=== PATIENT | female | born 1985 | race Caucasian/White ===

== ENCOUNTER 2016-11-28 08:41 | Emergency (ER) | payer BC, MEDICAID ==
[2016-11-28 08:48] VITALS: BP 130/88
--- NOTE | 2016-11-28 09:44 | ED ---
- HPI Summary HPI Summary: 31F presents with vaginal bleeding for 3 days. She states is started with spotting three days ago. Yesterday [facility] and they did an u/s and said that the fetus had no HR. She had appointment in [place] for D&E when last night she felt contractions and had heavy vaginal bleeding with clots. She staets she does not know if she is still bleeding but it is now just cramp like pain. She denies any lightheadedness. She denies any n/v or dysuria or fevers. She does not know her blood type. Her previous miscarriage is at 9weeks. - History of Current Complaint Chief Complaint: EDVaginalBleeding Stated Complaint: 17WKS PREG/VAG BLEEDING Time Seen by Provider: 11/28/16 09:20 Pain Intensity: 5 PMH/Surg Hx/FS Hx/Imm Hx Endocrine/Hematology History: Denies: Hx Anticoagulant Therapy Cardiovascular History: Reports: Hx Hypertension Infectious Disease History: Denies: Traveled Outside the [place] in Last 30 Days - Family History Known Family History: Positive: Cardiac Disease - Social History Alcohol Use: None Substance Use Type: Reports: None Smoking Status (MU): Never Smoked Tobacco Review of Systems Negative: Fever Negative: Chest Pain Negative: Shortness Of Breath Positive: Abdominal Pain, Other - vaginal bleeding. Negative: Vomiting, Diarrhea, Nausea All Other Systems Reviewed And Are Negative: Yes Physical Exam - Physical Exam Triage Information Reviewed: Yes Vital Signs Reviewed: Yes Appearance: Positive: Well-Appearing Skin: Positive: Warm, Dry Head/Face: Positive: Normal Head/Face Inspection Eyes: Positive: Normal, Conjunctiva Clear ENT: Positive: Normal ENT inspection, Pharynx normal, TMs normal Respiratory/Lung Sounds: Positive: Clear to Auscultation, Breath Sounds Present Cardiovascular: Positive: Normal, RRR Abdomen Description: Positive: Nontender, Soft Bowel Sounds: Positive: Present Diagnostics - Vital Signs Vital Signs Temp Pulse Resp BP Pulse Ox 11/28/16 08:45 98 F 88 19 130/88 98 - Laboratory Result Diagrams: 11/28/16 09:44 11/28/16 09:44 Lab Statement: Any lab studies that have been ordered have been reviewed, and results considered in the medical decision making process. - Ultrasound No standard instances Ultrasound Interpretation: Positive (See Comments) - IMPRESSION: NO INTRAUTERINE IS SEEN MOST CONSISTENT WITH THE PATIENT'S HISTORY OF A SPONTANEOUS MISCARRIAGE. THE LESS LIKELY POSSIBILITY OF AN ECTOPIC CANNOT BE EXCLUDED. RECOMMEND CLINICAL CORRELATION AND FOLLOW-UP. Ultrasound Interpretation Completed By: Radiologist Course/Dx - Course Course Of Treatment: 31F presents with vaginal bleeding for 3 days. had spotting and then had u/s yesterday without HR. last night she felt contractions and had heavy vaginal bleeding with clots. She denies any n/v or fevers. Her previous miscarriage is at 9weeks. B+ is blood type. on exam abdomen nontender. u/s does not show products of conceptions and bet HCG was 1070.07 so suspect demise for a while. warned of signs of infection to return for. attempted to contact her latrine cleaner and after multiple attempts unable to contact to keep in loop. patient has appointment on Thursday told to keep. patient understands and agrees with plan. - Differential Diagnosis/HQI/PQRI: Spontaneous , Intrauterine , /Embryonic Demise - Diagnoses Provider Diagnoses: Complete Discharge - Discharge Plan Condition: Good Disposition: HOME Patient Education Materials: Miscarriage (ED) Referrals: Vj Mcgowan [employer] [Primary Care Provider] - Lurdes Mcknight MD [Medical Doctor] - Additional Instructions: You may continue to spot for next couple days Take ibuprofen for Tylenol for pain every 6 hours Do not swim until told by obgyn as can increase chance of infection Follow up with obgyn Return to ED if develop any signs of infection such as foul smelling discharge, fever, rock hard abdomen, or any new or worsening symptoms
[2016-11-28 10:07] LABS: Hematocrit 37 % (35-47); Mean Corpuscular HGB Conc 33 g/dl (31-36); Mean Corpuscular Hemoglobin 28 pg (27-31); Mean Corpuscular Volume 86 fL (80-97); Mean Platelet Volume 9 um3 (7.4-10.4); Red Blood Count 4.28 10^6/ul (4.0-5.4); Red Cell Distribution Width 13 % (10.5-15); White Blood Count 11.3 10^3/ul (3.5-10.8)
[2016-11-28] MEDS ORDERED: ALPRAZolam TAB* 0.5 MG PO ONE (10:09)
[2016-11-28] MEDS ORDERED: ALPRAZolam TAB* 0.5 MG ONE (10:12)
--- NOTE | 2016-11-28 10:36 | RAD ---
INDICATION: , possible miscarriage. COMPARISON: There are no prior studies available for comparison. TECHNIQUE: Multiple real-time transabdominal images of the pelvis were obtained. FINDINGS: No intrauterine is seen. There is no gross evidence for retained products of conception. The uterus is slightly enlarged measuring 12.1 x 7.0 x 8.5 cm. The endometrial echo measures 1.5 cm in thickness. The ovaries were not visualized. No free intraperitoneal fluid is seen. IMPRESSION: NO INTRAUTERINE IS SEEN MOST CONSISTENT WITH THE PATIENT'S HISTORY OF A SPONTANEOUS MISCARRIAGE. THE LESS LIKELY POSSIBILITY OF AN ECTOPIC CANNOT BE EXCLUDED. RECOMMEND CLINICAL CORRELATION AND FOLLOW-UP.
[2016-11-28 10:41] LABS: Albumin 3.7 g/dL (3.2-5.2); BUN/Creatinine Ratio 9.9 (8-20); Calcium 9.3 mg/dL (8.6-10.3); EGFR African American 106.1 (>60); EGFR Non-African American 82.5 (>60); Globulin 3.2 g/dL (2-4); Potassium 3.5 mmol/L (3.5-5.0); Total Bilirubin 0.4 mg/dL (0.2-1.0); Total Protein 6.9 g/dL (6.4-8.9)
== END 2016-11-28 11:45 | disposition home or self-care (01) ==
LOC: ED 08:41
DX: O03.9 Complete or unspecified spontaneous abortion without complication (principal); R10.9 Unspecified abdominal pain; N93.9 Abnormal uterine and vaginal bleeding, unspecified
CPT/HCPCS: 36415; 76815; 80053; 84702; 85025; 99282; A9270-GY

== ENCOUNTER 2017-03-07 09:57 | Emergency (ER) | payer MEDICAID, OTHER ==
[2017-03-07] MEDS ORDERED: Aspirin Low Dose CHEW TAB* 81 MG PO ONE (10:05)
[2017-03-07] MEDS ORDERED: Ketorolac INJ* 30 MG/ML 1 ML VIAL IV PUSH ONE (10:16)
[2017-03-07 10:47] LABS: Hematocrit 39 % (35-47); Mean Corpuscular HGB Conc 34 g/dl (31-36); Mean Corpuscular Hemoglobin 29 pg (27-31); Mean Corpuscular Volume 85 fL (80-97); Mean Platelet Volume 9 um3 (7.4-10.4); Red Blood Count 4.53 10^6/ul (4.0-5.4); Red Cell Distribution Width 15 % (10.5-15); White Blood Count 8.8 10^3/ul (3.5-10.8)
[2017-03-07 11:01] LABS: ALT 32 U/L (7-52); AST 25 U/L (13-39); Albumin 3.9 g/dL (3.2-5.2); Alkaline Phosphatase 64 U/L (34-104); Anion Gap 9 mmol/L (2-11); BUN/Creatinine Ratio 12.3 (8-20); Blood Urea Nitrogen 10 mg/dL (6-24); CO2 Carbon Dioxide 22 mmol/L (22-32); Calcium 9.1 mg/dL (8.6-10.3); Chloride 103 mmol/L (101-111); EGFR African American 106.1 (>60); EGFR Non-African American 82.5 (>60); Globulin 3.5 g/dL (2-4); Glucose 138 mg/dL (70-100); Potassium 3.9 mmol/L (3.5-5.0); Sodium 134 mmol/L (133-145); Total Protein 7.4 g/dL (6.4-8.9)
--- NOTE | 2017-03-07 11:41 | RAD ---
INDICATION: Chest pain COMPARISON: None TECHNIQUE: An AP portable view obtained at 1133 hours is submitted. FINDINGS: Bones/Soft Tissues: There are no acute bony findings. Cardiomediastinal: The cardiomediastinal silhouette is normal. Lungs: There are no infiltrates. There is mild bibasilar hypoventilation Pleura: There are no pleural effusions. Other: None IMPRESSION: MILD BIBASILAR HYPOVENTILATION. NO DEFINITE INFILTRATES. SUGGEST FOLLOW-UP CLINICALLY INDICATED.
[2017-03-07 11:44] LABS: TSH (Thyroid Stimulating Horm) 4.46 mcIU/mL (0.34-5.60)
[2017-03-07 13:22] VITALS: BP 142/84
--- NOTE | 2017-03-08 21:02 | ED ---
Lilia Collazo Edward, scribed for Torsten Rich MD on 03/07/17 at 1016 . HPI Chest Pain - HPI Summary HPI Summary: 31 y/o female presents to the ED c/o sudden onset CP starting last night. The pt was lying in bed when the CP started. The CP is described as a sharp pain, rated a 8/10 when it started and a 4/10 now. The pain is aggravated with deep breaths and moving her L arm. The CP is located on the L side of the chest and radiates to the back and down the L shoulder. Denies N/V. Associated sx: SOB, L arm numbness. PMHx anxiety and HTN. Pt had a miscarriage 2 and a half months ago at 5 months . - History of Current Complaint Chief Complaint: EDChestPainROMI Hx Obtained From: Patient Onset/Duration: Started Hours Ago, Still Present Initial Severity: Severe Current Severity: Moderate Pain Intensity: 4 Pain Scale Used: 0-10 Numeric Chest Pain Location: Left Lateral Chest Pain Radiates: Yes Chest Pain Radiates To:: Back, Shoulder Aggravating Factor(s): Movement - L arm, Deep Breaths Alleviating Factor(s): Nothing Associated Signs and Symptoms: Positive: Chest Pain, Numbness, Shortness of Breath. Negative: Nausea, Vomiting - Allergy/Home Medications Allergies/Adverse Reactions: Allergies Allergy/AdvReac Type Severity Reaction Status Date / Time No Known Allergies Allergy Verified 03/07/17 10:01 Home Medications: Home Medications ALPRAZolam TAB* [Xanax TAB*] 0.25 mg PO Q8H PRN 03/07/17 [History Confirmed ] Cetirizine* [ZyrTEC 10 MG TAB*] 10 mg PO DAILY 03/07/17 [History Confirmed 03/07] Labetalol TAB* [Trandate TAB*] 100 mg PO BID 03/07/17 [History Confirmed ] PMH/Surg Hx/FS Hx/Imm Hx Previously Healthy: No Endocrine/Hematology History: Denies: Hx Anticoagulant Therapy Cardiovascular History: Reports: Hx Hypertension Infectious Disease History: Yes Infectious Disease History: Reports: Hx Hepatitis Denies: Traveled Outside the [place] in Last 30 Days - Family History Known Family History: Positive: Cardiac Disease, Hypertension - Social History Alcohol Use: None Hx Substance Use: No Substance Use Type: Reports: None Hx Tobacco Use: No Smoking Status (MU): Never Smoked Tobacco Review of Systems Constitutional: Negative Eyes: Negative ENT: Negative Positive: Chest Pain Positive: Shortness Of Breath Gastrointestinal: Negative Genitourinary: Negative Musculoskeletal: Negative Skin: Negative Positive: Numbness - L arm Psychological: Normal All Other Systems Reviewed And Are Negative: Yes Physical Exam - Summary Physical Exam Summary: VITAL SIGNS: Reviewed. GENERAL: Patient is an obese female who is lying comfortable in the stretcher. Patient is not in any acute respiratory distress. HEAD AND FACE: No signs of trauma. No ecchymosis, hematomas or skull depressions. No sinus tenderness. EYES: PERRLA, EOMI x 2, No injected conjunctiva, no nystagmus. EARS: Hearing grossly intact. Ear canals and tympanic membranes are within normal limits. MOUTH: Oropharynx within normal limits. NECK: Supple, trachea is midline, no adenopathy, no JVD, no carotid bruit, no c- spine tenderness, neck with full ROM. CHEST: Symmetric, reproducible chest pain. LUNGS: Clear to auscultation bilaterally. No wheezing or crackles. CVS: Regular rate and rhythm, S1 and S2 present, no murmurs or gallops appreciated. ABDOMEN: Soft, non-tender. No signs of distention. No rebound no guarding, and no masses palpated. Bowel sounds are normal. EXTREMITIES: FROM in all major joints, no edema, no cyanosis or clubbing. NEURO: Alert and oriented x 3. No acute neurological deficits. Speech is normal and follows commands. SKIN: Dry and warm Triage Information Reviewed: Yes Vital Signs On Initial Exam: Initial Vitals Temp Pulse Resp BP Pulse Ox 97.3 F 86 16 200/112 100 03/07/17 09:58 03/07/17 09:58 03/07/17 09:58 03/07/17 09:58 03/07/17 09:58 Vital Signs Reviewed: Yes Diagnostics - Vital Signs Vital Signs Temp Pulse Resp BP Pulse Ox 03/07/17 09:58 97.3 F 86 16 200/112 100 - Laboratory Lab Results: Lab Results 03/07/17 03/07/17 03/07/17 Range/Units 10:05 10:05 10:25 WBC 8.8 (3.5-10.8) 10^3/ul RBC 4.53 (4.0-5.4) 10^6/ul Hgb 13.0 (12.0-16.0) g/dl Hct 39 (35-47) % MCV 85 (80-97) fL MCH 29 (27-31) pg MCHC 34 (31-36) g/dl RDW 15 (10.5-15) % Plt Count 197 (150-450) 10^3/ul MPV 9 (7.4-10.4) um3 Neut % (Auto) 75.4 (38-83) % Lymph % (Auto) 14.6 L (25-47) % [place] % (Auto) 5.0 (1-9) % Eos % (Auto) 4.5 (0-6) % Baso % (Auto) 0.5 (0-2) % Absolute Neuts (auto) 6.7 (1.5-7.7) 10^3/ul Absolute Lymphs (auto) 1.3 (1.0-4.8) 10^3/ul Absolute Monos (auto) 0.4 (0-0.8) 10^3/ul Absolute Eos (auto) 0.4 (0-0.6) 10^3/ul Absolute Basos (auto) 0 (0-0.2) 10^3/ul Absolute Nucleated RBC 0 10^3/ul Nucleated RBC % 0 Sodium 134 (133-145) mmol/L Potassium 3.9 (3.5-5.0) mmol/L Chloride 103 (101-111) mmol/L Carbon Dioxide 22 (22-32) mmol/L Anion Gap 9 (2-11) mmol/L BUN 10 (6-24) mg/dL Creatinine 0.81 (0.51-0.95) mg/dL Est GFR ( Amer) 106.1 (>60) Est GFR (Non-Af Amer) 82.5 (>60) BUN/Creatinine Ratio 12.3 (8-20) Glucose 138 H (70-100) mg/dL Lactic Acid 1.0 (0.5-2.0) mmol/L Calcium 9.1 (8.6-10.3) mg/dL Total Bilirubin 0.50 (0.2-1.0) mg/dL AST 25 (13-39) U/L ALT 32 (7-52) U/L Alkaline Phosphatase 64 (34-104) U/L CK-MB (CK-2) 1.9 (0.6-6.3) ng/mL Troponin I 0.00 (<0.04) ng/mL Total Protein 7.4 (6.4-8.9) g/dL Albumin 3.9 (3.2-5.2) g/dL Globulin 3.5 (2-4) g/dL Albumin/Globulin Ratio 1.1 (1-3) TSH 4.46 (0.34-5.60) mcIU/mL Beta HCG, Quant < 0.60 mIU/mL 03/07/17 Range/Units 12:25 WBC (3.5-10.8) 10^3/ul RBC (4.0-5.4) 10^6/ul Hgb (12.0-16.0) g/dl Hct (35-47) % MCV (80-97) fL MCH (27-31) pg MCHC (31-36) g/dl RDW (10.5-15) % Plt Count (150-450) 10^3/ul MPV (7.4-10.4) um3 Neut % (Auto) (38-83) % Lymph % (Auto) (25-47) % [place] % (Auto) (1-9) % Eos % (Auto) (0-6) % Baso % (Auto) (0-2) % Absolute Neuts (auto) (1.5-7.7) 10^3/ul Absolute Lymphs (auto) (1.0-4.8) 10^3/ul Absolute Monos (auto) (0-0.8) 10^3/ul Absolute Eos (auto) (0-0.6) 10^3/ul Absolute Basos (auto) (0-0.2) 10^3/ul Absolute Nucleated RBC 10^3/ul Nucleated RBC % Sodium (133-145) mmol/L Potassium (3.5-5.0) mmol/L Chloride (101-111) mmol/L Carbon Dioxide (22-32) mmol/L Anion Gap (2-11) mmol/L BUN (6-24) mg/dL Creatinine (0.51-0.95) mg/dL Est GFR ( Amer) (>60) Est GFR (Non-Af Amer) (>60) BUN/Creatinine Ratio (8-20) Glucose (70-100) mg/dL Lactic Acid (0.5-2.0) mmol/L Calcium (8.6-10.3) mg/dL Total Bilirubin (0.2-1.0) mg/dL AST (13-39) U/L ALT (7-52) U/L Alkaline Phosphatase (34-104) U/L CK-MB (CK-2) (0.6-6.3) ng/mL Troponin I 0.00 (<0.04) ng/mL Total Protein (6.4-8.9) g/dL Albumin (3.2-5.2) g/dL Globulin (2-4) g/dL Albumin/Globulin Ratio (1-3) TSH (0.34-5.60) mcIU/mL Beta HCG, Quant mIU/mL Result Diagrams: 03/07/17 10:25 03/07/17 10:05 Lab Statement: Any lab studies that have been ordered have been reviewed, and results considered in the medical decision making process. - Radiology CXR Xray Interpretation: Positive (See Comments) - MILD BIBASILAR HYPOVENTILATION. NO DEFINITE INFILTRATES. SUGGEST FOLLOW-UP CLINICALLY INDICATED. Radiology Interpretation Completed By: Radiologist - EKG 1 EKG Interpretation: 10:05 - SR @ [address] elevations. Inverted T waves in III Chest Pain Course/Dx - Course Assessment/Plan: 31 y/o female presents to the ED c/o sudden onset CP starting last night. The pt was lying in bed when the CP started. The CP is described as a sharp pain, rated a 8/10 when it started and a 4/10 now. The pain is aggravated with deep breaths and moving her L arm. The CP is located on the L side of the chest and radiates to the back and down the L shoulder. Denies N/V. Associated sx: SOB, L arm numbness. PMHx anxiety and HTN. Pt had a miscarriage 2 and a half months ago at 5 months . EKG at 10:05 - SR @ [address] elevations. Inverted T waves in III. CXR SHOWS MILD BIBASILAR HYPOVENTILATION. NO DEFINITE INFILTRATES. SUGGEST FOLLOW-UP CLINICALLY INDICATED. Test results without significant abnormalities except Glucose 138. First and second troponin both 0.00. EKG shows no ST elevations and CXR shows no acute pathology. Pt reports pain is sharp aggravated deep expirations and movment of the L arm. Pt was given Toradol for pain and sx improved. I have no suspicion for ACS. Pt also has no tachycardia and is not hypoxic, therefore I have no suspicion for PE. The pt will be d/c home with f/u with PCP. The pt is hemodynamically stable and A&Ox3. - Chest Pain Differential Diagnosis/HQI/PQRI: ACS, Angina, CHF, Chest Wall, GI Disease, Lower Respiratory Infection - Diagnoses Provider Diagnoses: Atypical chest pain Discharge - Discharge Plan Condition: Stable Disposition: HOME Patient Education Materials: Chest Pain (ED) Referrals: Vj Mcgowan, [employer] [Primary Care Provider] - 3 Days (PLEASE F/U IN 2-3 DAYS) The documentation as recorded by the Lilia funes Edward accurately reflects the service I personally performed and the decisions made by Hilario juarez Walter, MD.
--- NOTE | 2017-03-10 09:05 | PN ---
Progress Note - Progress Note Date of Service: 03/07/17 Note: MRSA and S Aureus aerobic culture bottle results both negative. No growth day 2. anaerobic culture bottle preliminary results negative. no further action required at this time.
== END 2017-03-07 13:22 | disposition home or self-care (01) ==
LOC: ED 09:57
DX: R07.89 Other chest pain (principal)
CPT/HCPCS: 36415; 71010; 80053; 82553; 83605; 84443; 84484; 84702; 85025; 87040; 87077; 87150; 87205; 93005; 96374; 99282; J1885

== ENCOUNTER 2018-06-22 08:03 | Observation (INO) | payer OTHER ==
[2018-06-22] MEDS ORDERED: Aspirin 81 mg CHEW TAB* 81 MG TAB.CHEW PO ONE (08:12)
--- NOTE | 2018-06-22 08:16 | ED ---
HPI Chest Pain - HPI Summary HPI Summary: This pt is a 33 y/o female [facility] c/o chest pain x2 days. Pt reports she has had intermittent chest pain since 2 days ago, but today it has been constant. She states her chest pain began at 05:40 today when she woke up. Her chest pain is described as heaviness and rated 7/10 in severity. Additionally notes nausea, vomiting, lightheadedness. Denies recent out of the country travel. Pt notes she thought her symptoms for the past 2 days were due to a panic attack. She reports she was in the ED for the same symptoms about 1.5 years ago. PMHx: HTN. Pt admits to occasional alcohol but denies tobacco and drug use. - History of Current Complaint Chief Complaint: EDChestPainROMI Time Seen by Provider: 06/22/18 08:11 Hx Obtained From: Patient Onset/Duration: Started Days Ago, Still Present Timing: Intermittent, Lasting Days Current Severity: Moderate Pain Intensity: 7 Pain Scale Used: 0-10 Numeric Chest Pain Location: Mid Sternal Chest Pain Radiates: No Character: Heaviness Aggravating Factor(s): Nothing Alleviating Factor(s): Nothing Associated Signs and Symptoms: Positive: Chest Pain, Shortness of Breath, Lightheadedness, Nausea, Vomiting. Negative: Fever, Chills - Allergy/Home Medications Allergies/Adverse Reactions: Allergies Allergy/AdvReac Type Severity Reaction Status Date / Time No Known Allergies Allergy Verified 06/22/18 08:07 PMH/Surg Hx/FS Hx/Imm Hx Endocrine/Hematology History: Denies: Hx Anticoagulant Therapy, Hx Diabetes Cardiovascular History: Reports: Hx Hypertension Infectious Disease History: No Infectious Disease History: Reports: Hx Hepatitis Denies: Traveled Outside the [place] in Last 30 Days - Family History Known Family History: Positive: Cardiac Disease, Hypertension, Diabetes - Social History Alcohol Use: Occasionally Alcohol Amount: 1 bottle of wine per night Hx Substance Use: No Substance Use Type: Reports: None Hx Tobacco Use: No Smoking Status (MU): Never Smoked Tobacco Review of Systems Negative: Fever, Chills Positive: Chest Pain Positive: Shortness Of Breath Positive: Vomiting, Nausea Neurological: Other - POS: lightheadedness All Other Systems Reviewed And Are Negative: Yes Physical Exam - Summary Physical Exam Summary: VITAL SIGNS: Reviewed. GENERAL: Patient is a well-developed and nourished female who is lying comfortable in the stretcher. Patient is not in any acute respiratory distress. HEAD AND FACE: No signs of trauma. No ecchymosis, hematomas or skull depressions. No sinus tenderness. EYES: PERRLA, EOMI x 2, No injected conjunctiva, no nystagmus. EARS: Hearing grossly intact. Ear canals and tympanic membranes are within normal limits. MOUTH: Oropharynx within normal limits. NECK: Supple, trachea is midline, no adenopathy, no JVD, no carotid bruit, no c- spine tenderness, neck with full ROM. CHEST: Symmetric, no tenderness at palpation LUNGS: Clear to auscultation bilaterally. No wheezing or crackles. CVS: Regular rate and rhythm, S1 and S2 present, no murmurs or gallops appreciated. ABDOMEN: Soft, non-tender. No signs of distention. No rebound, no guarding, and no masses palpated. Bowel sounds are normal. EXTREMITIES: FROM in all major joints, no edema, no cyanosis or clubbing. NEURO: Alert and oriented x 3. No acute neurological deficits. Speech is normal and follows commands. SKIN: Dry and warm Triage Information Reviewed: Yes Vital Signs On Initial Exam: Initial Vitals Temp Pulse Resp BP Pulse Ox 97.2 F 74 16 188/127 100 06/22/18 08:04 06/22/18 08:04 06/22/18 08:04 06/22/18 08:04 06/22/18 08:04 Vital Signs Reviewed: Yes Diagnostics - Vital Signs Vital Signs Temp Pulse Resp BP Pulse Ox 06/22/18 08:04 97.2 F 74 16 188/127 100 - Laboratory Result Diagrams: 06/23/18 06:27 06/23/18 06:27 Lab Statement: Any lab studies that have been ordered have been reviewed, and results considered in the medical decision making process. - Radiology Chest XR Radiology Interpretation Completed By: Radiologist Summary of Radiographic Findings: IMPRESSION: No active cardiopulmonary disease. Dr. Rich has reviewed this report. - EKG 08:11 Cardiac Rate: NL - at 75 bpm EKG Rhythm: Sinus Rhythm Summary of EKG Findings: No ST elevations Chest Pain Course/Dx - Course Assessment/Plan: This pt is a 33 y/o female presenting to [facility] c/o chest pain x2 days. Pt reports she has had intermittent chest pain since 2 days ago, but today it has been constant. She states her chest pain began at 05:40 today when she woke up. Her chest pain is described as heaviness and rated 7/10 in severity. Additionally notes nausea, vomiting, lightheadedness. Denies recent out of the country travel. Pt notes she thought her symptoms for the past 2 days were due to a panic attack. She reports she was in the ED for the same symptoms about 1.5 years ago. PMHx: HTN. Pt admits to occasional alcohol but denies tobacco and drug use. Blood work without any significant abnormality except for glucose 104 and magnesium 1.7. In the ED course the patients blood pressure was significantly elevated. Therefore the patient was given hydralazine. The patient was given aspirin for the chest pain. I think the patient would benefit from a stress test. I discussed the case with Dr. Suárez from the hospitalist services who accepted the patient for admission. Patient is hemodynamically stable, alert and oriented 3. - Diagnoses Provider Diagnoses: Chest pain, Hypertensive urgency - Provider Notifications Discussed Care Of Patient With: Dana Suárez - hospitalist Time Discussed With Above Provider: 09:48 Instructed by Provider To: Admit As Inpatient Discharge - Sign-Out/Discharge Documenting (check all that apply): Patient Departure - Admit to [facility] All imaging exams completed and their final reports reviewed: Yes - Discharge Plan Condition: Stable Disposition: ADMITTED TO [facility] - Billing Disposition and Condition Condition: STABLE Disposition: Admitted to [facility] - Attestation Statements Document Initiated by Aden: Yes Documenting Scribe: Megan Galloway Provider For Whom Aden is Documenting (Include Credential): Torsten Rich MD Scribe Attestation: Megan Collazo scribed for Torsten Rich MD on 06/23/18 at 0714. Scribe Documentation Reviewed: Yes Provider Attestation: The documentation as recorded by the Megan funes accurately reflects the service I personally performed and the decisions made by me, Torsten Rich MD Status of Scribe Document: Viewed
[2018-06-22 08:30] LABS: ABS Basophils 0.1 10^3/ul (0-0.2); ABS Eosinophils 0.3 10^3/ul (0-0.6); ABS Lymphocytes 1.2 10^3/ul (1.0-4.8); ABS Monocytes 0.3 10^3/ul (0-0.8); ABS Neutrophils 4.3 10^3/ul (1.5-7.7); ABS Nucleated RBC 0 10^3/ul; Eosinophil % 5.6 %; Hematocrit 39 % (35-47); Hemoglobin 13.2 g/dl (12.0-16.0); Lymphocyte % 19.9 %; Mean Corpuscular HGB Conc 34 g/dl (31-36); Mean Corpuscular Hemoglobin 29 pg (27-31); Mean Corpuscular Volume 85 fL (80-97); Mean Platelet Volume 9.2 fL (7.4-10.4); Nucleated Red Blood Cells % 0.1; Platelet Count 198 10^3/ul (150-450); Red Blood Count 4.57 10^6/ul (4.00-5.40); Red Cell Distribution Width 14 % (10.5-15); White Blood Count 6.3 10^3/ul (3.5-10.8)
[2018-06-22 08:44] LABS: Activated Partial Thrombo Time 28.1 seconds (26.0-36.3); INR 0.9 (0.77-1.02)
[2018-06-22 08:58] LABS: Albumin 4.1 g/dL (3.2-5.2); Albumin/Globulin Ratio 1.3 (1-3); BUN/Creatinine Ratio 21.9 (8-20); Calcium 9.5 mg/dL (8.6-10.3); EGFR Non-African American 91.8 (>60); Globulin 3.2 g/dL (2-4); Magnesium 1.7 mg/dL (1.9-2.7); Potassium 4.1 mmol/L (3.5-5.0); Total Bilirubin 0.4 mg/dL (0.2-1.0); Total Protein 7.3 g/dL (6.4-8.9)
[2018-06-22] MEDS ORDERED: Labetalol IV* 5 MG/ML 20 ML VIAL IV PUSH ONE (09:18)
[2018-06-22 09:22] LABS: TSH (Thyroid Stimulating Horm) 3.95 mcIU/mL (0.34-5.60)
[2018-06-22] MEDS ORDERED: hydrALAZINE IV* 20 MG/ML VIAL IV SLOW PU ONE (09:22)
[2018-06-22] MEDS ORDERED: hydrALAZINE IV* 20 MG/ML VIAL ONE (09:24)
[2018-06-22] MEDS ORDERED: Magnesium Oxide TAB* 400 MG PO ONE (09:26)
[2018-06-22] MEDS ORDERED: LORazepam TAB(*) 0.5 MG PO ONE ×2 (09:36→10:32)
[2018-06-22] MEDS ORDERED: Magnesium Sulfate 1 GM IV* 1 GM/100 ML BAG IV ONE (10:00)
[2018-06-22 11:05] LABS: Barbiturates Urine Screen None Detected (None Detect); Benzodiazepine Urine Screen None Detected (None Detect); Urine Cannabinoids Screen None Detected (None Detect)
[2018-06-22] MEDS ORDERED: Morphine VIAL* 4 MG/ML VIAL (1 ml vial) IV PRN (11:05)
[2018-06-22] MEDS ORDERED: hydrALAZINE IV* 20 MG/ML VIAL IV SLOW PU PRN (11:09)
[2018-06-22] MEDS: Labetalol TAB* 100 MG PO SCH ×2 (11:30→21:49)
[2018-06-22] MEDS: Acetaminophen TAB* 325 MG PO PRN ×2 (12:32→18:48)
--- NOTE | 2018-06-22 13:42 | HP ---
CC: Vj Mcgowan NP * HISTORY AND PHYSICAL: DATE OF ADMISSION: 06/22/18 PRIMARY CARE PROVIDER: Vj Mcgowan NP CHIEF COMPLAINT: Chest pain. HISTORY OF PRESENT ILLNESS: Magy Gomez is a 33-year-old female with history of anxiety and hypertension, who presented to the hospital complaining of chest pain. The patient stated that the chest pain started occurring approximately 2 days ago. She had episodes of chest pain when she would wake up in the morning and she stated that initially it would be pain substernal at 4 -7/10, nonradiating, burning. There were no aggravating or alleviating factors. The patient stated that with the pain she would get anxious and feel her heart was pounding. She denied any shortness of breath. Once again, movement did not make much of a difference, but she tried to "walk a dog." The patient stated that with her anxiety when she tries to walk the dog or exercise , it gets better. Today, in the morning, she got the pain again in the same presentation upon awakening. She stated that she went on a treadmill to see if she can distract herself and the pain would away, but it did not. She started feeling anxious about this that she has hypertension and she may be having a sudden cardiac arrest and she came into the hospital for evaluation. She had a similar presentation in 2017, at that point she also had problems with anxiety. She had no workup apart from visit in the ED. The patient has been hypertensive for 11 years now with history of preeclampsia. She also had been on Xanax for anxiety approximately 3 years. She has had problems at home after her is now as of 3 months. She stated that her household is currently "calm." She denies any problems at work. Dr. Rich from the emergency department requested for the patient to be admitted to rule out angina. The patient agrees to the admission for a stress test in the morning. PAST MEDICAL HISTORY: 1. History of anxiety with anxiety attacks in 2017. 2. History of hypertension for the past 11 years with preeclampsia. CURRENT MEDICATIONS: Include: 1. Labetalol 100 mg b.i.d. 2. Xanax 0.25 mg every 8 hours p.r.n. 3. Zyrtec 10 mg daily. ALLERGIES: No known drug allergies. FAMILY HISTORY: Positive for 2 maternal uncles with history of heart disease in their 40s. Father's history is unknown. Mother is healthy. Siblings are healthy. SOCIAL HISTORY: The patient has history of drinking 1 bottle of wine 5 days out of 7 up to about 2 months ago when she started cutting down. Her last glass of alcohol was for New 's Bindu. Her New Year's resolution is to stop drinking alcohol. She denies any problems with driving under influence or any other issues with alcohol use in the past. She denies any smoking, marijuana use or other drug use. She lives with her 2 children ages 7 and 11. She is currently from her and her mother, Indira Joya, is the patient's surrogate. REVIEW OF SYSTEMS: Please see history of present illness. In addition to above mentioned, the patient stated that she has good exercise tolerance. She exercises on a daily basis without any problems. All the remaining 12 systems were reviewed with the patient and were otherwise negative. PHYSICAL EXAMINATION GENERAL: The patient is a very pleasant 33-year-old female, obese, in no acute distress. Alert, awake, and oriented x3. VITAL SIGNS: Blood pressure of 173/110, heart rate of 97 and regular, respiratory rate 18, oxygen saturation 100% on room air, temperature of 97.2. HEENT: Head: Atraumatic, normocephalic. Eyes: Pupils are equal, reactive to light and accommodation. Oropharynx is clear. Mucosa moist. NECK: Supple. No JVD. No bruits bilaterally. RESPIRATORY: Clear to auscultation bilaterally. CARDIOVASCULAR: Regular rate and rhythm. No murmur. ABDOMEN: Soft, nontender. Bowel sounds are present in all 4 quadrants. EXTREMITIES: There is no edema. Pulses are +2 bilaterally. No clubbing or cyanosis. NEUROLOGIC: Speech is clear. Cranial nerves II through XII are grossly intact. Motor strength is 5/5 bilaterally. PSYCHIATRIC: The patient is currently crying/tearful. Pleasant, cooperative, anxious appearing. DIAGNOSTIC STUDIES/LAB DATA: Current laboratory data: White blood cell count of 6.3, hemoglobin of 13.2, hematocrit of 39, and platelets of 198. Sodium was 133, potassium 4.1, chloride 105, carbon dioxide 22, BUN 16, creatinine 0.73. Liver function tests unremarkable. Troponin of 0. TSH of 3.95. The patient's EKG showed normal sinus rhythm with heart rate of 75 beats per minute with frequent PVCs, negative T-waves in leads III and aVF. Comparing with an EKG from 2017, the aVF previously with T wave positive. Portable chest x-ray, impression: "No active cardiopulmonary disease." ASSESSMENT AND PLAN: 1. In regards to the patient's chest pain. It is related to more panic attack than cardiac issue. Nevertheless, the ED provider already requested for the patient to be admitted for a stress test and the patient due to her anxiety is expecting to have the cardiac rule out at this point. We will place her on child monitor floor and she is going to undergo a cardiac stress test in the morning. Due to the negative T deflection in inferior leads, I will order for nuclear portion of the stress test also. The patient is obese, she has history of hypertension and heart disease in the family. She is going to be placed on daily aspirin. 2. In regards to the patient's anxiety. I suspect the patient has been having anxiety attack. I will ask Psychiatry to see the patient in consultation. 3. For the patient's hypertension, the patient is going to be continued on her labetalol and hydralazine p.r.n. I suspect that anxiety plays a role in her hypertension. 4. The patient's code status is full and her surrogate is her mother. TIME SPENT: Approximately 65 minutes was spent on admission of this patient, more than half that time was spent [id number] with the patient during the interview and physical exam. [id number]/[facility]PS #: [id number] CAROL
--- NOTE | 2018-06-22 15:20 | ECHO ---
Patient: MARCELO PEREZ [facility] Rec#: [id number] : 1985 Date: 06/22/2018 Age: 33y Height: 157 cm / 61.8 in Weight: 113.4 kg / 249.9 lbs Sex: F BSA: 2.1 Room#: [facility] Admit Date#: 06/22/2018 Type: Inpatient Referring: Dana Suárez MD Reading: Dash Renner MD Transportation Escort: Rosie Stanley RD Transthoracic Echocardiogram Indication: Chest Pain BP: 149/111 HR: 80 Rhythm: NSR with PVCs Findings History: HTN, obesity. Technical Comments: The study quality is fair. Completed at 1415. Left Ventricle: The left ventricular chamber size is normal. There is no left ventricular hypertrophy. Global left ventricular wall motion and contractility are within normal limits. There is normal left ventricular systolic function. The estimated ejection fraction is 60-65%. Normal left ventricular diastolic filling is observed. Left Atrium: The left atrium is mildly dilated. Right Ventricle: Moderator Band present. The right ventricle is mildly dilated. The right ventricular global systolic function is normal. Right Atrium: The right atrium is mildly dilated. Aortic Valve: The aortic valve is trileaflet. There is no evidence of aortic valve thickening. There is no evidence of aortic regurgitation. There is no evidence of aortic stenosis. Mitral Valve: The mitral valve leaflets are mildly thickened. There is a trace of mitral regurgitation. There is no evidence of mitral stenosis. Tricuspid Valve: The tricuspid valve leaflets are normal. There is mild tricuspid regurgitation. The right ventricular systolic pressure is estimated at 32 mmHg. There is no tricuspid stenosis. Pulmonic Valve: The pulmonic valve appears normal. There is a trace pulmonic regurgitation. There is no pulmonic stenosis. Pericardium: There is no significant pericardial effusion. A pericardial fat pad is visualized. Aorta: There is no dilatation of the ascending aorta. There is no dilatation of the aortic arch. The aortic root is normal in size. Pulmonary Artery: The main pulmonary artery appears normal. Venous: The inferior vena cava appears normal in size. There is a greater than 50% respiratory change in the inferior vena cava dimension. Summary: There was not any prior study for comparison. Conclusions Global left ventricular wall motion and contractility are within normal limits. There is normal left ventricular systolic function. The estimated ejection fraction is 60-65%. There is no evidence of aortic stenosis. There is a trace of mitral regurgitation. There is mild tricuspid regurgitation. The right ventricular systolic pressure is estimated at 32 mmHg. There is no significant pericardial effusion. Measurements Name Value Normal Range RVIDd (AP) 2D 3.4 cm (0.9 - 2.6) RVDdMajor (2D) 4.5 cm (2.2 - 4.4) RAd ISD 4CH 5.5 cm (3.4 - 4.9) RA (A4C)W 3.9 cm (2.9 - 4.6) IVSd (2D) 0.9 cm (0.6 - 1) LVPWd (2D) 1 cm (0.6 - 1) LVIDd (2D) 4.5 cm (3.6 - 5.4) LVIDs (2D) 2.8 cm - LV FS (2D) 38 % (25 - 45) Aortic Annulus 1.9 cm (1.4 - 2.6) Ao root diameter (2D) 2.7 cm (2.1 - 3.5) Ascending Ao 2.9 cm (2.1 - 3.4) Aortic arch 2.2 cm (1.8 - 3.4) LA dimension (AP) 2D 4.5 cm (2.3 - 3.8) LAd ISD 4CH 5.7 cm (2.9 - 5.3) LA ISD 4CH W 4.4 cm (2.5 - 4.5) Name Value Normal Range LA ESV BP (A/L) index 35 ml/m2 - Name Value Normal Range MV E-wave Vmax 1 m/sec - MV deceleration time 201 msec - MV A-wave Vmax 0.8 m/sec - MV E:A ratio 1.2 ratio - LV septal e' Vmax 0.09 m/sec - LV lateral e' Vmax 0.13 m/sec - LV E:e' septal ratio 11.1 ratio - LV E:e' lateral ratio 7.7 ratio - Name Value Normal Range AV Vmax 1.9 m/sec - AV VTI 39 cm - AV peak gradient 14 mmHg - AV mean gradient 7 mmHg - LVOT Vmax 1.3 m/sec - LVOT VTI 28 cm - LVOT peak gradient 7 mmHg - LVOT mean gradient 4 mmHg - NEW Vmax 1.3 m/sec - Name Value Normal Range TR Vmax 2.7 m/sec - TR peak gradient 29 mmHg - RAP 3 mmHg - RVSP 32 mmHg - IVC diameter 1.9 cm - Name Value Normal Range PV Vmax 1.2 m/sec - PV peak gradient 6 mmHg - IA end-diastolic Vmax 1 m/sec - PA end-diastolic pressur4 mmHg -
[2018-06-22] MEDS: ALPRAZolam TAB* 0.25 MG PO PRN (15:23)
[2018-06-22] MEDS ORDERED: Melatonin 3 MG TAB PO SCH (22:00)
[2018-06-23 06:43] LABS: ABS Basophils 0.1 10^3/ul (0-0.2); ABS Eosinophils 0.4 10^3/ul (0-0.6); ABS Lymphocytes 1.6 10^3/ul (1.0-4.8); ABS Monocytes 0.3 10^3/ul (0-0.8); ABS Neutrophils 3.7 10^3/ul (1.5-7.7); ABS Nucleated RBC 0 10^3/ul; Eosinophil % 6.1 %; Hematocrit 39 % (35-47); Hemoglobin 13.1 g/dl (12.0-16.0); Lymphocyte % 26.1 %; Mean Corpuscular HGB Conc 34 g/dl (31-36); Mean Corpuscular Hemoglobin 29 pg (27-31); Mean Corpuscular Volume 85 fL (80-97); Mean Platelet Volume 8.7 fL (7.4-10.4); Nucleated Red Blood Cells % 0.1; Platelet Count 207 10^3/ul (150-450); Red Blood Count 4.57 10^6/ul (4.00-5.40); Red Cell Distribution Width 14 % (10.5-15); White Blood Count 6.1 10^3/ul (3.5-10.8)
[2018-06-23 06:58] LABS: Calcium 9.3 mg/dL (8.6-10.3); Potassium 3.9 mmol/L (3.5-5.0)
[2018-06-23] MEDS ORDERED: Aspirin 81 mg CHEW TAB* 81 MG TAB.CHEW PO SCH (09:00)
[2018-06-23] MEDS: Labetalol TAB* 100 MG PO SCH (10:03)
[2018-06-23] MEDS: Acetaminophen TAB* 325 MG PO PRN (10:03)
[2018-06-23 13:13] VITALS: BP 133/84
--- NOTE | 2018-06-23 13:37 | PN ---
"Progress Note - Progress Note Date of Service: 06/23/18 Note: Search Terms: andrew PEREZ, 1985 Search Date: 06/23/2018 01:36:09 PM The Drug Utilization Report below displays all of the controlled substance prescriptions, if any, that your patient has filled in the last twelve months. The information displayed on this report is compiled from pharmacy submissions to the Department, and accurately reflects the information as submitted by the pharmacies. This report was requested by: Axel Jauregui | Reference #: [id number] Others' Prescriptions Patient Name: Andrew Perez Date: 1985 Address: [address] [place] [address] Sex: Female Rx Written Rx Dispensed Drug Quantity Days Supply Prescriber Name 12/03/2017 12/04/2017 alprazolam 0.25 mg tablet 30 10 Vj Mcgowan"
[2018-06-23] MEDS: ALPRAZolam TAB* 0.25 MG PO PRN (14:14)
--- NOTE | 2018-06-23 16:28 | CONSULT ---
Consult Consult: Patient seen and assessed. Please see full dictated consult to follow. Patient meets criteria for Panic DO. Outpatient prescription for citalopram 20mg PO qday started and transmitted to [facility] in [place], [place]. Patient psychiatrically cleared for discharge.
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
--- NOTE | 2018-06-23 20:14 | DS ---
CC: Vj Mcgowan NP DISCHARGE SUMMARY: DATE OF ADMISSION: DATE OF DISCHARGE: 06/23/18 HISTORY OF PRESENT ILLNESS: This 33-year-old woman came to the hospital with chest pain. She also said she was short of breath. She felt like she was going to . She had numbness and tingling of her both arms. She has had this on numerous times. She said she had this 2 days before admission at home lasting 6 to 7 hours. She took several alprazolam, but this did not help. She feels that it very well may be panic attacks. She has been having this off and on for months. She is under increased stress recently as she is in the process of having a separation. She has a new job, which she has been for 3 months, but she states this is less stressful than her previous job. She was at training session 2 days before admission on Thursday for her job, which is the reason why she did not seek medical attention during the 6 to 7 hour episode. She said she simply tried to ignore it while she went through her training session. I note that she likes to exercise 5 days a week, but she said over the holidays , she got out of this and has not done this for some time, may be 2 to 3 months. She is being treated for hypertension as well. The rest of the history and physical is detailed in the admission notes. The patient was admitted to telemetry unit. She had 3 troponin levels, all of which were within normal limits. On the day of discharge, she had a nuclear cardiac stress test. She reached a peak heart rate of 176, 94% of predicted, ejection fraction was 60% with stress, 70% with rest. There were no fixed or reversible perfusion defects. The patient is to have a consultation by Dr. Aaron by 4 p.m. today. This is being dictated before the consultation. If he prescribes medication for her, it may not be included in this discharge summary. FINAL DIAGNOSES: 1. Panic attacks. 2. Hypertension. 3. Morbid obesity. DISCHARGE MEDICATIONS: 1. Cetirizine 10 mg daily. 2. Alprazolam 0.25 mg every 8 hours p.r.n. 3. Labetalol 100 mg b.i.d. 4. Citalopram as per Dr. Aaron. CONDITION ON DISCHARGE: Stable. DISPOSITION ON DISCHARGE: Discharge home. [id number]/[facility] #: [id number] MTDElisa
== END 2018-06-23 17:01 | disposition home or self-care (01) ==
LOC: ED 08:03 → MEDTELE 11:05
PROVIDERS: ADMIT Internal Medicine; ATTEND Internal Medicine
DX: F41.0 Panic disorder [episodic paroxysmal anxiety] (principal); I10 Essential (primary) hypertension; E66.01 Morbid (severe) obesity due to excess calories; R07.9 Chest pain, unspecified
CPT/HCPCS: 36415; 71045; 78452; 80048; 80053; 80061; 80307; 82550; 82553; 83605; 83735; 83880; 84443; 84484; 85025; 85379; 85610; 85730; 87086; 93005; 93017; 93306; 96374; 96375; 99284; A9270-GY; A9502; G0378; J0360; J3475

== ENCOUNTER 2019-06-17 06:41 | Day surgery (SDC) | payer BC ==
[~2019-06-17 06:41] MED LIST: Buffered Lidocaine 1% SYRIN* 1 ML/SYRINGE INTRADERM ONE; Lactated Ringers 1000 ML Bag* 1,000 ML IV SCH
[2019-06-17] MEDS ORDERED: Clindamycin 900 MG/D5W BAG(*) 900 MG/50 ML BAG IVPB ONE (07:11)
[2019-06-17] MEDS ORDERED: Buffered Lidocaine 1% SYRIN* 1 ML/SYRINGE INTRADERM ONE (07:12)
[2019-06-17] MEDS ORDERED: Dexamethasone IV* 4 MG/ML 1 ML (4 MG) ONE (08:20)
[2019-06-17] MEDS ORDERED: Glycopyrrolate IV* 0.2 MG/ML 1 ML VIAL ONE ×2 (08:20→10:27)
[2019-06-17] MEDS ORDERED: Rocuronium* 10 MG/ML VIAL ONE (08:20)
[2019-06-17] MEDS ORDERED: Ondansetron INJ* 2 MG/ML VIAL ONE (08:20)
[2019-06-17] MEDS ORDERED: Ketorolac INJ* 30 MG/ML 1 ML VIAL ONE (08:20)
[2019-06-17] MEDS ORDERED: Midazolam* 1 MG/ML 2 ML VIAL (2 MG) ONE (08:20)
[2019-06-17] MEDS ORDERED: fentaNYL* 50 MCG/ML 2 ML VIAL (100 MCG VIAL) ONE ×2 (08:20→13:38)
[2019-06-17] MEDS ORDERED: Propofol* 10 MG/ML 20 ML BTL ONE (08:20)
[2019-06-17] MEDS ORDERED: Bupivacaine 0.25% SDV* 30 ML ONE (09:08)
[2019-06-17] MEDS ORDERED: Sevoflurane* BOTTLE ONE (10:07)
[2019-06-17] MEDS ORDERED: Neostigmine Methylsulfate* 3 MG/3 ML SYRINGE ONE (10:27)
[2019-06-17] MEDS ORDERED: Acetaminophen IV 1GM/100ML * 100 ML ONE (10:32)
[2019-06-17] MEDS ORDERED: Naloxone* 0.4 MG/ML 1 ML VIAL IV PRN (11:09)
--- NOTE | 2019-06-17 11:47 | OP ---
Operative Report - Blank - Operative Report Date of Operation: 06/17/19 Note: Operative Note Preoperative Dx: Cholilithiasis Postoperative Dx: Cholelithiasis Procedure: Laparoscopic Cholecystectomy Anesthesia: GET Surgeon: Terra COLES Assist: Kirill LUNA EBL: 25cc Specimen: GB Fluids: 1 litre LR Drain: none Findings: as above
[2019-06-17] MEDS ORDERED: ALPRAZolam TAB* 0.25 MG PO PRN (12:11)
[2019-06-17] MEDS: fentaNYL* 50 MCG/ML 2 ML VIAL (100 MCG VIAL) IV PRN ×2 (13:39→13:59)
[2019-06-17 15:20] VITALS: BP 160/106
--- NOTE | 2019-06-17 16:21 | OP ---
Operative Report - Blank - Operative Report Date of Operation: 06/17/19 Note: PRE-OPERATIVE DIAGNOSIS: Symptomatic cholelithiasis POST-OPERATIVE DIAGNOSIS: Same PROCEDURE: Laparoscopic cholecystectomy SURGEON: Yaima Ellison MD MANAGER SUPPLY: Omid ARMSTRONG ANESTHESIA: General EBL: 30 ml FINDINGS: Mildly inflamed gallbladder wall. Cholelithiasis. Small fat- containing umbilical hernia. INDICATION: Magy Gomez is a 34 year-old woman with a history of hypertension and obesity who was seen in clinic for symptomatic cholelithiasis. She reported abdominal pain radiating to her back and nausea after eating fatty foods. Ultrasound showed cholelithiasis. Cholecystectomy was discussed. Risks were also discussed including but not limited to bleeding, infection, common bile duct injury, or bowel injury. She desired to proceed with surgery. DESCRIPTION: The patient was brought to the OR and placed in the supine position on the OR table. SCDs were placed. The patient was warmed. Clindamycin 900 mg was given. General anesthesia was administered. The abdomen was prepped and draped in the usual sterile fashion. A time out was called confirming the patient's name, date of , and procedure. A supraumbilical curvilinear incision was made with a 15 blade scalpel. The incision was taken down to the fascia with blunt dissection. The fascia was elevated with Alyssia clamps and incised transversely with a scalpel. The peritoneum was grasped with a Marce clamp. The peritoneum was opened with a Metzenbaum scissors. A 12 mm Amanda trocar was inserted into the abdomen. Pneumoperitoneum to 15 mmHg was achieved. The camera was placed into the port. A 5 mm trocar was placed under direct visualization in the epigastrium. Another 5 mm trocar was placed then in the lateral right upper quadrant, and a third 5 mm trocar was placed in the right upper quadrant at the mid-clavicular line, both under direct visualization. The dome of the gallbladder was grasped and elevated cephalad. The peritoneum was dissected off of the gallbladder wall using blunt dissection and electrocautery. There was a lymph node overlying the gallbladder which was dissected off the wall. The cystic duct could be seen coming from the infundibulum. The peritoneum over the cystic duct was dissected away with electrocautery. The liver could be seen behind the gallbladder and cystic duct , and the cystic duct was the only structure coming off of the gallbladder. The cystic duct was clipped and divided sharply between the clips. The cystic artery was not seen. However, there was a large vessel behind the lymph node that ran along the gallbladder fossa on the liver. The gallbladder was then taken off the liver using electrocautery. The gallbladder was placed into a specimen bag and removed from the abdomen. The clips on the cystic duct stump were examined and in good position. The surgical field was irrigated with saline and suctioned. There was good hemostasis. The 5 mm trocars were removed under direct visualization. The 12 mm trocar was removed. The fascia was closed with interrupted 0 Vicryl sutures. There was a small fat-containing umbilical hernia approximately 1 cm in diameter near the trocar site. The defect was incorporated into the fascial closure to close the hernia. Marcaine 0.25% was injected into all the incisions. The skin at the umbilical incision was closed with a running 4-0 monocryl. The 5 mm trocar sites were closed with interrupted 4-0 monocryl. SteriStrips were placed over the incisions. Needle and sponge counts were correct. The patient was extubated and brought to recovery in stable condition.
== END 2019-06-17 15:20 | disposition home or self-care (01) ==
LOC: OR 06:41
PROVIDERS: ATTEND Surgery Surgical Critical Care
DX: K80.10 Calculus of gallbladder with chronic cholecystitis without obstruction (principal); I10 Essential (primary) hypertension; Z87.891 Personal history of nicotine dependence; F41.9 Anxiety disorder, unspecified; E66.01 Morbid (severe) obesity due to excess calories
CPT/HCPCS: 81025; 88304; A9270-GY; J1100; J1885; J2250; J2405; J2704; J2710; J3010; J3490